=== PATIENT | male | born 1965 | race American Indian/Alaskan Native ===

== ENCOUNTER 2018-03-29 01:31 | Emergency (ER) | payer BC, OTHER ==
[2018-03-29 01:51] LABS: Absolute Lymphocytes (CBC) 1.7 K/uL (0.7-4.9); Absolute Monocytes 0.9 K/uL (0.1-1.3); Absolute Neutrophil 10.4 K/uL (1.8-8.0); Basophils % 0.2 % (0-1.3); Eosinophils % 0.5 % (0-4.4); Hematocrit 43.6 % (39.6-49.0); Lymphocytes % 12.8 % (15.3-44.8); MCH 30.9 pg (27.0-35.0); MCV 90.2 fL (80-100); MPV 8.2 fL (7.6-11.3); Monocytes % 6.9 % (3.3-12.3); RBC Red Blood Cell Count 4.84 M/uL (4.33-5.43)
[2018-03-29] MEDS ORDERED: NA CHLORIDE 0.9% 1,000 ML ONE (01:55)
[2018-03-29] MEDS ORDERED: ONDANSETRON 4 MG/2 ML VIAL ONE (01:55)
[2018-03-29] MEDS ORDERED: FENTANYL CITR 100 MCG/2 ML ONE (01:55)
[2018-03-29] MEDS ORDERED: KETOROLAC 30 MG/ML INJ ONE (01:55)
[2018-03-29 02:08] LABS: Albumin 4.4 g/dL (3.4-5.0); Bilirubin Total 0.5 mg/dL (0.2-1.0); Protein, Total 8.7 g/dL (6.4-8.2)
--- NOTE | 2018-03-29 02:32 | EDPHYS ---
Physician Documentation [facility] Name: Toby Wallace Age: 52 yrs Sex: Male : 1965 Arrival Date: 03/29/2018 Time: 01:32 Bed 5 Private MD: CHRIS Physician Lee Fontenot HPI: 03/29 01:41 This 52 yrs old Other Male presents to ER via Ambulatory with complaints of Back Pain. anish 01:41 The patient presents with pain that is acute, with no known mechanism of injury. The anish symptoms are located in the low back, right mid back and right low back. Onset: The symptoms/episode began/occurred just prior to arrival. The pain does not radiate. Associated signs and symptoms: The patient has no apparent associated signs or symptoms. Modifying factors: The patient symptoms are alleviated by nothing, the patient symptoms are aggravated by nothing. Severity of symptoms: At their worst the symptoms were. The patient has not experienced similar symptoms in the past. Historical: - Allergies: 01:42 No Known Allergies; fc - Home Meds: 01:42 Crestor 10 mg oral tab 1 tab once daily [Active]; Tribenzor 40-10-25 mg oral tab 1 tab fc once daily [Active]; Janumet 50-1,000 mg oral tab 1 tab 2 times per day [Active]; aspirin 81 mg Oral TbEC 1 tab once daily [Active]; Bystolic 10 mg oral tab 1 tab once daily [Active]; - PMHx: 01:42 Hypertension; Hyperlipidemia; fc - Immunization history:: Last tetanus immunization: up to date Flu vaccine is not up to date. - Social history:: Smoking status: Patient/guardian denies using tobacco, Patient uses alcohol, occasionally. - Ebola Screening: : Patient negative for fever greater than or equal to 101.5 degrees Fahrenheit, and additional compatible Ebola Virus Disease symptoms Patient denies exposure to infectious person Patient denies travel to an Ebola-affected area in the 21 days before illness onset. - Family history:: not pertinent. ROS: 01:41 Constitutional: Negative for fever, chills, and weight loss, Eyes: Negative for injury, anish pain, redness, and discharge, ENT: Negative for injury, pain, and discharge, Neck: Negative for injury, pain, and swelling, Cardiovascular: Negative for chest pain, palpitations, and edema, Respiratory: Negative for shortness of breath, cough, wheezing, and pleuritic chest pain, Abdomen/GI: Negative for abdominal pain, nausea, vomiting, diarrhea, and constipation, : Negative for injury, bleeding, discharge, and swelling, MS/Extremity: Negative for injury and deformity, Skin: Negative for injury, rash, and discoloration, Neuro: Negative for headache, weakness, numbness, tingling, and seizure, Psych: Negative for depression, anxiety, suicide ideation, homicidal ideation, and hallucinations, Allergy/Immunology: Negative for hives, rash, and allergies, Endocrine: Negative for neck swelling, polydipsia, polyuria, polyphagia, and marked weight changes, Hematologic/Lymphatic: Negative for swollen nodes, abnormal bleeding, and unusual bruising. 01:41 Back: Positive for pain at rest, flank pain, on the right. Exam: 01:41 Constitutional: This is a well developed, well nourished patient who is awake, alert, anish and in no acute distress. Head/Face: Normocephalic, atraumatic. Eyes: Pupils equal round and reactive to light, extra-ocular motions intact. Lids and lashes normal. Conjunctiva and sclera are non-icteric and not injected. Cornea within normal limits. Periorbital areas with no swelling, redness, or edema. ENT: Nares patent. No nasal discharge, no septal abnormalities noted. Tympanic membranes are normal and external auditory canals are clear. Oropharynx with no redness, swelling, or masses, exudates, or evidence of obstruction, uvula midline. Mucous membranes moist. Neck: Trachea midline, no thyromegaly or masses palpated, and no cervical lymphadenopathy. Supple, full range of motion without nuchal rigidity, or vertebral point tenderness. No Meningismus. Chest/axilla: Normal chest wall appearance and motion. Nontender with no deformity. No lesions are appreciated. Cardiovascular: Regular rate and rhythm with a normal S1 and S2. No gallops, murmurs, or rubs. Normal PMI, no JVD. No pulse deficits. Respiratory: Lungs have equal breath sounds bilaterally, clear to auscultation and percussion. No rales, rhonchi or wheezes noted. No increased work of breathing, no retractions or nasal flaring. Abdomen/GI: Soft, non-tender, with normal bowel sounds. No distension or tympany. No guarding or rebound. No evidence of tenderness throughout. Male : Normal genitalia with no discharge or lesions. Skin: Warm, dry with normal turgor. Normal color with no rashes, no lesions, and no evidence of cellulitis. MS/ Extremity: Pulses equal, no cyanosis. Neurovascular intact. Full, normal range of motion. Neuro: Awake and alert, GCS 15, oriented to person, place, time, and situation. Cranial nerves II-XII grossly intact. Motor strength 5/5 in all extremities. Sensory grossly intact. Cerebellar exam normal. Normal gait. Psych: Awake, alert, with orientation to person, place and time. Behavior, mood, and affect are within normal limits. 01:41 Back: pain, that is moderate, ROM is normal, normal spinal alignment noted, CVA tenderness, is absent. Vital Signs: 01:37 BP 164 / 101; Pulse 77; Resp 18; Temp 97.8(O); Pulse Ox 100% on R/A; Weight 70.31 kg fc (R); Height 5 ft. 8 in. (172.72 cm) (M); Pain 8/10; 02:00 BP 156 / 94; Pulse 75; Resp 18; Temp 97.8(O); Pulse Ox 99% on R/A; rr5 02:51 BP 142 / 86; Pulse 80; Resp 16; Pulse Ox 99% on R/A; rr5 01:37 Body Mass Index 23.57 (70.31 kg, 172.72 cm) MDM: 01:35 Patient medically screened. [facility] 01:43 Data reviewed: vital signs, nurses notes, lab test result(s), radiologic studies, CT anish scan. 03/29 01:40 Order name: CBC with Diff; Complete Time: 02:07 [facility] 03/29 01:40 Order name: Comprehensive Metabolic Panel; Complete Time: 02:27 [facility] 03/29 01:40 Order name: Lipase; Complete Time: 02:27 [facility] 03/29 01:41 Order name: Urine Culture [facility] 03/29 02:39 Order name: Urine Dipstick--Ancillary (enter results) mw2 03/29 02:47 Order name: HgA1c [facility] 03/29 01:40 Order name: CT Stone Protocol [facility] Administered Medications: 01:50 Drug: Zofran 4 mg Route: IVP; Site: right antecubital; rr5 02:49 Follow up: Response: No adverse reaction rr5 01:53 Drug: TORadol 30 mg Route: IVP; Site: right antecubital; rr5 02:49 Follow up: Response: No adverse reaction rr5 01:57 Drug: fentaNYL (PF) 25 mcg {Note: BP156/94.} Route: IVP; Site: right antecubital; rr5 02:49 Follow up: Response: No adverse reaction rr5 02:03 Drug: NS 0.9% 1000 ml Route: IV; Rate: 1 bolus; Site: right antecubital; rr5 02:50 Follow up: Response: No adverse reaction; IV Status: Order to discontinue infusion; IV rr5 Intake: 300ml ; discharged 02:38 CANCELLED (Duplicate Order): Rocephin - (cefTRIAXone) 1 grams IVPB once over 30 mins; anish (mix in 50 mL NS) 02:47 Drug: Flomax 0.4 mg Route: PO; rr5 02:47 Follow up: Response: Medication administered at discharge. rr5 02:48 Not Given (relieved from pain): fentaNYL (PF) 25 mcg IVP once rr5 Disposition: 03/29/18 02:31 Discharged to Home. Impression: Hydronephrosis with renal and ureteral calculous obstruction - 2-3 mm upj stone, Type 2 diabetes mellitus. - Condition is Stable. - Discharge Instructions: Kidney Stones, Kidney Stones, Uath-ne-Fdda, Hydronephrosis, Dietary Guidelines to Help Prevent Kidney Stones. - Prescriptions for Cipro 250 mg Oral Tablet - take 1 tablet by ORAL route every 12 hours; 14 tablet. Tylenol- Codeine #3 300-30 mg Oral Tablet - take 2 tablet by ORAL route every 6 hours As needed; 30 tablet. Zofran 4 mg Oral Tablet - take 1 tablet by ORAL route every 12 hours As needed; 20 tablet. Flomax 0.4 mg Oral Capsule, Sust. Release 24 hr - take 1 capsule by ORAL route once daily 1/2 hour following the same meal each day; 30 capsule. - Medication Reconciliation Form, Thank You Letter, Antibiotic Education, Prescription Opioid Use form. - Follow up: Private Physician; When: 2 - 3 days; Reason: Recheck today's complaints, Continuance of care, Re-evaluation by your physician. Follow up: Parag Ramirez MD; When: 2 - 3 days; Reason: Recheck today's complaints, Re-evaluation by your physician. - Problem is new. - Symptoms have improved. Signatures: Dispatcher [employer] Lee Zeng MD MD cha Chretien, Felicia, RN RN Dell Stephenson RN RN rr5 Corrections: (The following items were deleted from the chart) 02:38 02:28 Rocephin - (cefTRIAXone) 1 grams IVPB once over 30 mins; (mix in 50 mL NS) anish ordered. anish 02:52 02:31 03/29/2018 02:31 Discharged to Home. Impression: Hydronephrosis with renal and rr5 ureteral calculous obstruction - 2-3 mm upj stone; Type 2 diabetes mellitus. Condition is Stable. Forms are Medication Reconciliation Form, Thank You Letter, Antibiotic Education, Prescription Opioid Use. Follow up: Private Physician; When: 2 - 3 days; Reason: Recheck today's complaints, Continuance of care, Re-evaluation by your physician. Follow up: Parag Ramirez; When: 2 - 3 days; Reason: Recheck today's complaints, Re-evaluation by your physician. Problem is new. Symptoms have improved. anish
--- NOTE | 2018-03-29 02:32 | ER ---
Nurse's Notes [facility] Name: Toby Wallace Age: 52 yrs Sex: Male : 1965 Arrival Date: 03/29/2018 Time: 01:32 Bed 5 Private MD: Diagnosis: Hydronephrosis with renal and ureteral calculous kkxrsjynmek-3-9 mm upj stone;Type 2 diabetes mellitus Presentation: 03/29 01:37 Presenting complaint: Patient states: that he is having right lower back pain that fc started at 2200 tonight. Denies any urinary problems or nausea/vomiting. Thinks he may have a kidney stone. Transition of care: patient was not received from another setting of care. Onset of symptoms was March 28, 2018 at 22:00. Risk Assessment: Do you want to hurt yourself or someone else? Patient reports no desire to harm self or others. Initial Sepsis Screen: Does the patient meet any 2 criteria? No. Patient's initial sepsis screen is negative. Does the patient have a suspected source of infection? No. Patient's initial sepsis screen is negative. Care prior to arrival: Medication(s) given: Hydrocodone at 2300. 01:37 Method Of Arrival: Ambulatory fc 01:37 Acuity: PADILLA 3 fc Historical: - Allergies: 01:42 No Known Allergies; fc - Home Meds: 01:42 Crestor 10 mg oral tab 1 tab once daily [Active]; Tribenzor 40-10-25 mg oral tab 1 tab fc once daily [Active]; Janumet 50-1,000 mg oral tab 1 tab 2 times per day [Active]; aspirin 81 mg Oral TbEC 1 tab once daily [Active]; Bystolic 10 mg oral tab 1 tab once daily [Active]; - PMHx: 01:42 Hypertension; Hyperlipidemia; fc - Immunization history:: Last tetanus immunization: up to date Flu vaccine is not up to date. - Social history:: Smoking status: Patient/guardian denies using tobacco, Patient uses alcohol, occasionally. - Ebola Screening: : Patient negative for fever greater than or equal to 101.5 degrees Fahrenheit, and additional compatible Ebola Virus Disease symptoms Patient denies exposure to infectious person Patient denies travel to an Ebola-affected area in the 21 days before illness onset. - Family history:: not pertinent. Screenin:40 Abuse screen: Denies threats or abuse. Nutritional screening: No deficits noted. Tuberculosis screening: No symptoms or risk factors identified. Fall Risk None identified. Assessment: 02:00 General: Appears uncomfortable, ill, Behavior is cooperative. Pain: Complains of pain rr5 in right lower and mid back Pain does not radiate. Pain at worst was 10 out of 10 on a pain scale. Quality of pain is described as aching, Pain began 1 hour ago. Is intermittent. Neuro: Level of Consciousness is awake, alert, obeys commands, Oriented to person, place, time, situation. Cardiovascular: Capillary refill < 3 seconds Patient's skin is warm and dry. Respiratory: Airway is patent. GI: Abdomen is flat. : No signs and/or symptoms were reported regarding the genitourinary system. Denies burning with urination, inability to void. EENT: No signs and/or symptoms were reported regarding the EENT system. Derm: No signs and/or symptoms reported regarding the dermatologic system. Musculoskeletal: No signs and/or symptoms reported regarding the musculoskeletal system. Capillary refill < 3 seconds. 02:19 Reassessment: Patient states feeling better. Patient states symptoms have improved. rr5 Reassessment: feeling relieved from severe pain as verbalized. Pain: Pain currently is 5 out of 10 on a pain scale. Current management is with given fentanyl and toradol IV is partially effective Goal of pain control is to be pain free, sleep comfortably. Vital Signs: 01:37 BP 164 / 101; Pulse 77; Resp 18; Temp 97.8(O); Pulse Ox 100% on R/A; Weight 70.31 kg fc (R); Height 5 ft. 8 in. (172.72 cm) (M); Pain 8/10; 02:00 BP 156 / 94; Pulse 75; Resp 18; Temp 97.8(O); Pulse Ox 99% on R/A; rr5 02:51 BP 142 / 86; Pulse 80; Resp 16; Pulse Ox 99% on R/A; rr5 01:37 Body Mass Index 23.57 (70.31 kg, 172.72 cm) ED Course: 01:32 Patient arrived in ED. es 01:35 Lee Fontenot MD is Attending Physician. anish 01:37 Arm band placed on Patient placed in an exam room, on a stretcher. fc 01:38 Triage completed. fc 01:40 Patient has correct armband on for positive identification. Bed in low position. Call light in reach. Pulse ox on. NIBP on. 01:43 Dell Stephenson RN is Primary Nurse. rr5 01:50 Inserted saline lock: 20 gauge in right antecubital area, using aseptic technique. rr5 Blood collected. 02:[address] via stretcher. kw1 02:06 CT completed. Patient tolerated procedure well. Patient moved back from [place]. kw1 02:12 CT Stone Protocol In Process Unspecified. EDMS 02:29 Parag Ramirez MD is Referral Physician. anish 02:51 No provider procedures requiring assistance completed. IV discontinued, bleeding rr5 controlled, Pressure dressing applied. Administered Medications: 01:50 Drug: Zofran 4 mg Route: IVP; Site: right antecubital; rr5 02:49 Follow up: Response: No adverse reaction rr5 01:53 Drug: TORadol 30 mg Route: IVP; Site: right antecubital; rr5 02:49 Follow up: Response: No adverse reaction rr5 01:57 Drug: fentaNYL (PF) 25 mcg {Note: BP156/94.} Route: IVP; Site: right antecubital; rr5 02:49 Follow up: Response: No adverse reaction rr5 02:03 Drug: NS 0.9% 1000 ml Route: IV; Rate: 1 bolus; Site: right antecubital; rr5 02:50 Follow up: Response: No adverse reaction; IV Status: Order to discontinue infusion; IV rr5 Intake: 300ml ; discharged 02:38 CANCELLED (Duplicate Order): Rocephin - (cefTRIAXone) 1 grams IVPB once over 30 mins; anish (mix in 50 mL NS) 02:47 Drug: Flomax 0.4 mg Route: PO; rr5 02:47 Follow up: Response: Medication administered at discharge. rr5 02:48 Not Given (relieved from pain): fentaNYL (PF) 25 mcg IVP once rr5 Intake: 02:50 IV: 300ml; Total: 300ml. rr5 Outcome: 02:31 Discharge ordered by . anish 02:51 Discharged to home ambulatory. rr5 02:51 Condition: stable 02:51 Discharge instructions given to patient, Instructed on discharge instructions, follow up and referral plans. medication usage, Demonstrated understanding of instructions, follow-up care, medications, Prescriptions given X 4. 02:52 Patient left the ED. rr5 Signatures: Dispatcher [employer] Lee Zeng MD MD cha Salyer, Edna es Chretien, Felicia, RN RN Torrie Floyd1 Dell Stephenson RN RN rr5
[2018-03-29] MEDS ORDERED: TAMSULOSIN 0.4 MG SR CAP ONE (02:53)
[2018-03-29 03:06] VITALS: TEMP 97.8
[2018-03-29 03:07] VITALS: O2SAT 99
[2018-03-29 03:08] VITALS: BP 142/86
[2018-03-29 03:21] LABS: Urine Blood 2+ (NEG); Urine Glucose 2+ (NEG); Urine Protein NEGATIVE (NEG); Urine pH 8.5 (5.0-7.0)
--- NOTE | 2018-03-29 08:05 | RAD REPORT ---
EXAM DESCRIPTION: CT - Stone Protocol - 03/29/2018 5:38 am CLINICAL HISTORY: Abdominal pain. Lower abdominal pain. Urinary frequency COMPARISON: None. TECHNIQUE: Computed axial tomography of the abdomen pelvis was obtained without oral or IV contrast. Lack of IV and oral contrast limits evaluation of solid organs, bowel, and vessels. Coronal reformat eli images were obtained and reviewed. All CT scans are performed using dose optimization technique as appropriate and may include automated exposure control or mA/KV adjustment according to patient size. FINDINGS: A right renal calculus is not seen. A 1 millimeter calculus within the left kidney is susp ected. Minimal left hydronephrosis is seen without obstructing calculus. Mild right hydronephrosis is present with stranding in the adjacent fat. 4.5 millimeter calculus is present within the proximal r ight ureter near the UPJ Hounsfield unit 1545. The liver, spleen, pancreas and adrenals appear grossly normal There is no evidence of diverticulitis. The appendix appears normal Small umbilical hernia is present IMPRESSION: A 4.5 millimeter calculus proximal right ureter near the UPJ resulting in mild right hyd ronephrosis
== END 2018-03-29 02:52 | disposition home or self-care (01) ==
LOC: ER 01:31
DX: N13.2 Hydronephrosis with renal and ureteral calculous obstruction (principal); E11.9 Type 2 diabetes mellitus without complications; I10 Essential (primary) hypertension; E78.5 Hyperlipidemia, unspecified; Z79.82 Long term (current) use of aspirin
CPT/HCPCS: 36415; 74176; 76377; 80053; 81003; 83036; 83690; 85025; 87086; 87088; 96361; 96374; 96375; 99284; J2405; J3010; J7030

== ENCOUNTER 2018-03-29 22:59 | Observation (INO) | payer BC, OTHER ==
[2018-03-29] MEDS ORDERED: FENTANYL CITR 100 MCG/2 ML ONE (23:23)
[2018-03-29] MEDS ORDERED: CEFTRIAXONE 1000 MG/VIAL ONE (23:24)
[2018-03-29] MEDS ORDERED: NA CHLORIDE 0.9% 50 ML IV ONE (23:24)
[2018-03-29] MEDS ORDERED: NA CHLORIDE 0.9% 1,000 ML ONE (23:24)
[2018-03-29] MEDS ORDERED: ONDANSETRON 4 MG/2 ML VIAL ONE (23:24)
[2018-03-29] MEDS ORDERED: KETOROLAC 30 MG/ML INJ ONE (23:24)
[2018-03-29 23:40] LABS: Absolute Lymphocytes (CBC) 1.8 K/uL (0.7-4.9); Absolute Monocytes 0.9 K/uL (0.1-1.3); Absolute Neutrophil 5.6 K/uL (1.8-8.0); Basophils % 0.2 % (0-1.3); Eosinophils % 1.1 % (0-4.4); Hematocrit 40.4 % (39.6-49.0); Lymphocytes % 21.5 % (15.3-44.8); MCH 31.2 pg (27.0-35.0); MCV 89.4 fL (80-100); MPV 8.3 fL (7.6-11.3); Monocytes % 10.8 % (3.3-12.3); RBC Red Blood Cell Count 4.52 M/uL (4.33-5.43)
[2018-03-29 23:40] LABS: Urine Blood 1+ (NEG); Urine Glucose TRACE (NEG); Urine Protein NEGATIVE (NEG)
[2018-03-29 23:54] LABS: Albumin 4.2 g/dL (3.4-5.0); Bilirubin Total 0.7 mg/dL (0.2-1.0); Potassium 3.6 mmol/L (3.5-5.1); Protein, Total 8.3 g/dL (6.4-8.2)
--- NOTE | 2018-03-30 00:44 | EDPHYS ---
Physician Documentation [facility] Name: Toby Wallace Age: 52 yrs Sex: Male : 1965 Arrival Date: 03/29/2018 Time: 23:00 Bed 15 Private MD: Lee Summers HPI: 03/29 23:12 This 52 yrs old Other Male presents to ER via Unassigned with complaints of Possible anish Kidney Stone. 23:12 The patient presents with abdominal pain. Onset: The symptoms/episode began/occurred anish yesterday. The patient complains of pain in the right mid back and right low back. The pain does not radiate. Onset: The symptoms/episode began/occurred 1 day(s) ago. Associated signs and symptoms: The patient has no apparent associated signs or symptoms. The symptoms do not radiate. Associated signs and symptoms: none. Historical: - Allergies: 23:05 No Known Allergies; cc3 - Home Meds: 23:05 aspirin 81 mg Oral TbEC 1 tab once daily [Active]; Bystolic 10 mg Oral tab 1 tab once cc3 daily [Active]; Crestor 10 mg Oral tab 1 tab once daily [Active]; Janumet 50-1,000 mg Oral tab 1 tab 2 times per day [Active]; Tribenzor 40-10-25 mg Oral tab 1 tab once daily [Active]; - PMHx: 23:05 Hyperlipidemia; Hypertension; Diabetes - NIDDM; cc3 - PSHx: 23:05 None; cc3 - Immunization history:: Adult Immunizations not up to date. - Social history:: Smoking status: Patient/guardian denies using tobacco, never smoked. - Family history:: not pertinent. - Ebola Screening: : No symptoms or risks identified at this time. ROS: 23:12 Constitutional: Negative for fever, chills, and weight loss, Eyes: Negative for injury, anish pain, redness, and discharge, ENT: Negative for injury, pain, and discharge, Neck: Negative for injury, pain, and swelling, Cardiovascular: Negative for chest pain, palpitations, and edema, Respiratory: Negative for shortness of breath, cough, wheezing, and pleuritic chest pain, Abdomen/GI: Negative for abdominal pain, nausea, vomiting, diarrhea, and constipation, : Negative for injury, bleeding, discharge, and swelling, MS/Extremity: Negative for injury and deformity, Skin: Negative for injury, rash, and discoloration, Neuro: Negative for headache, weakness, numbness, tingling, and seizure, Psych: Negative for depression, anxiety, suicide ideation, homicidal ideation, and hallucinations, Allergy/Immunology: Negative for hives, rash, and allergies, Endocrine: Negative for neck swelling, polydipsia, polyuria, polyphagia, and marked weight changes, Hematologic/Lymphatic: Negative for swollen nodes, abnormal bleeding, and unusual bruising. 23:12 Back: Positive for pain at rest, flank pain, on the right. Exam: 23:12 Constitutional: This is a well developed, well nourished patient who is awake, alert, anish and in no acute distress. Head/Face: Normocephalic, atraumatic. Eyes: Pupils equal round and reactive to light, extra-ocular motions intact. Lids and lashes normal. Conjunctiva and sclera are non-icteric and not injected. Cornea within normal limits. Periorbital areas with no swelling, redness, or edema. ENT: Nares patent. No nasal discharge, no septal abnormalities noted. Tympanic membranes are normal and external auditory canals are clear. Oropharynx with no redness, swelling, or masses, exudates, or evidence of obstruction, uvula midline. Mucous membranes moist. Neck: Trachea midline, no thyromegaly or masses palpated, and no cervical lymphadenopathy. Supple, full range of motion without nuchal rigidity, or vertebral point tenderness. No Meningismus. Chest/axilla: Normal chest wall appearance and motion. Nontender with no deformity. No lesions are appreciated. Cardiovascular: Regular rate and rhythm with a normal S1 and S2. No gallops, murmurs, or rubs. Normal PMI, no JVD. No pulse deficits. Respiratory: Lungs have equal breath sounds bilaterally, clear to auscultation and percussion. No rales, rhonchi or wheezes noted. No increased work of breathing, no retractions or nasal flaring. Abdomen/GI: Soft, non-tender, with normal bowel sounds. No distension or tympany. No guarding or rebound. No evidence of tenderness throughout. Male : Normal genitalia with no discharge or lesions. Skin: Warm, dry with normal turgor. Normal color with no rashes, no lesions, and no evidence of cellulitis. MS/ Extremity: Pulses equal, no cyanosis. Neurovascular intact. Full, normal range of motion. Neuro: Awake and alert, GCS 15, oriented to person, place, time, and situation. Cranial nerves II-XII grossly intact. Motor strength 5/5 in all extremities. Sensory grossly intact. Cerebellar exam normal. Normal gait. Psych: Awake, alert, with orientation to person, place and time. Behavior, mood, and affect are within normal limits. 23:12 Back: pain, that is mild, that is moderate, of the right mid back, ROM is normal, normal spinal alignment noted, CVA tenderness, that is mild, is noted on the right, vertebral tenderness, is not appreciated, muscle spasm, is not present. Vital Signs: 23:05 BP 163 / 97; Pulse 92; Resp 20 S; Temp 99(O); Pulse Ox 100% on R/A; Weight 70.31 kg; cc3 Height 5 ft. 8 in. (172.72 cm); Pain 10/10; 03/30 00:35 BP 159 / 96; Pulse 94; Resp 18 S; Pulse Ox 96% on R/A; Pain 2/10; cc3 01:15 BP 150 / 90; Pulse 95; Resp 20 S; Pulse Ox 97% on R/A; cc3 01:42 BP 147 / 86; Pulse 91; Resp 19 S; Pulse Ox 97% on R/A; cc3 11 23:05 Body Mass Index 23.57 (70.31 kg, 172.72 cm) cc3 MDM: 03/29 23:05 Patient medically screened. [facility] 23:14 Data reviewed: vital signs, nurses notes, lab test result(s), radiologic studies, plain anish films. 03/29 23:08 Order name: CBC with Diff [facility] 03/29 23:08 Order name: Comprehensive Metabolic Panel; Complete Time: 00:35 [facility] 03/29 23:08 Order name: Abdomen 1 View (KUB) XRAY [facility] 03/29 23:13 Order name: Urine Dipstick--Ancillary (enter results); Complete Time: 00:35 ms 03/30 00:48 Order name: CONS Physician Consult EDMS Administered Medications: 23:20 Drug: NS 0.9% 1000 ml Route: IV; Rate: 1 bolus; Site: right antecubital; cc3 03/30 00:47 Follow up: Response: No adverse reaction; IV Status: Completed infusion; IV Intake: cc3 1000ml 03/29 23:25 Drug: TORadol 30 mg Route: IVP; Site: right antecubital; cc3 03/30 00:10 Follow up: Response: No adverse reaction; Pain is decreased cc3 03/29 23:28 Drug: Zofran 4 mg Route: IVP; Site: right antecubital; cc3 03/30 00:10 Follow up: Response: No adverse reaction; Nausea is decreased cc3 03/29 23:30 Drug: fentaNYL (PF) 25 mcg Route: IVP; Site: right antecubital; cc3 03/30 00:10 Follow up: Response: No adverse reaction; Pain is decreased cc3 03/29 23:40 Drug: Rocephin - (cefTRIAXone) 1 grams Route: IVPB; Infused Over: 30 mins; Site: right cc3 antecubital; 03/30 00:10 Follow up: Response: No adverse reaction; IV Status: Completed infusion; IV Intake: [id number] 00:50 Drug: fentaNYL (PF) 25 mcg Route: IVP; Site: right antecubital; cc3 01:20 Follow up: Response: No adverse reaction; Pain is decreased cc3 Disposition: 03/30/18 00:43 Hospitalization ordered by Christin Adair for Observation. Preliminary diagnosis are Hydronephrosis with renal and ureteral calculous obstruction - intractable pain, Unspecified kidney failure, Type 2 diabetes mellitus. - Bed requested for Telemetry/MedSurg (observation). - Status is Observation. cc3 - Condition is Stable. - Problem is new. - Symptoms have improved. UTI on Admission? No Signatures: Dispatcher [employer] EDTorrie Israel RN RN kl Anderson, Corey, MD MD cha Cordel, Charlene cc3 Corrections: (The following items were deleted from the chart) 00:48 00:43 Hospitalization Ordered by Christin Adair MD for Observation. Preliminary anish diagnosis is Hydronephrosis with renal and ureteral calculous obstruction - intractable pain. Bed requested for Telemetry/MedSurg (observation). Status is Observation. Condition is Stable. Problem is new. Symptoms have improved. UTI on Admission? No. anish 01:09 00:48 03/30/2018 00:43 Hospitalization Ordered by Christin Adair MD for Observation. kl Preliminary diagnosis is Hydronephrosis with renal and ureteral calculous obstruction - intractable pain; Unspecified kidney failure; Type 2 diabetes mellitus. Bed requested for Telemetry/MedSurg (observation). Status is Observation. Condition is Stable. Problem is new. Symptoms have improved. UTI on Admission? No. anish 01:49 01:09 03/30/2018 00:43 Hospitalization Ordered by Christin Adair MD for Observation. cc3 Preliminary diagnosis is Hydronephrosis with renal and ureteral calculous obstruction - intractable pain; Unspecified kidney failure; Type 2 diabetes mellitus. Bed requested for Telemetry/MedSurg (observation). Status is Observation. Condition is Stable. Problem is new. Symptoms have improved. UTI on Admission? No. kl
--- NOTE | 2018-03-30 00:44 | ER ---
Nurse's Notes [facility] Name: Toby Wallace Age: 52 yrs Sex: Male : 1965 Arrival Date: 03/29/2018 Time: 23:00 Bed 15 Private MD: Diagnosis: Hydronephrosis with renal and ureteral calculous obstruction-intractable pain;Unspecified kidney failure;Type 2 diabetes mellitus Presentation: 03/29 23:05 Presenting complaint: Patient states: right flank pain. Transition of care: patient was cc3 not received from another setting of care. 23:05 Method Of Arrival: Ambulatory cc3 23:05 Acuity: PADILLA 3 cc3 23:05 Onset of symptoms was March 29, 2018. Risk Assessment: Do you want to hurt yourself cc3 or someone else? Patient reports no desire to harm self or others. Initial Sepsis Screen: Does the patient meet any 2 criteria? No. Patient's initial sepsis screen is negative. Does the patient have a suspected source of infection? No. Patient's initial sepsis screen is negative. Care prior to arrival: None. Triage Assessment: 23:05 General: Appears in no apparent distress. comfortable, Behavior is calm, cooperative, cc3 appropriate for age. Pain: Complains of pain in right flank pain Pain currently is 10 out of 10 on a pain scale. Quality of pain is described as aching. EENT: No signs and/or symptoms were reported regarding the EENT system. Neuro: Level of Consciousness is awake, alert, obeys commands, Oriented to person, place, time, situation, Appropriate for age. Cardiovascular: Denies chest pain. Respiratory: Airway is patent Respiratory effort is even, unlabored, Respiratory pattern is regular, symmetrical. GI: Abdomen is flat, non-distended. : No signs and/or symptoms were reported regarding the genitourinary system. Derm: No signs and/or symptoms reported regarding the dermatologic system. Musculoskeletal: Circulation, motion, and sensation intact. Range of motion: intact in all extremities. Historical: - Allergies: 23:05 No Known Allergies; cc3 - Home Meds: 23:05 aspirin 81 mg Oral TbEC 1 tab once daily [Active]; Bystolic 10 mg Oral tab 1 tab once cc3 daily [Active]; Crestor 10 mg Oral tab 1 tab once daily [Active]; Janumet 50-1,000 mg Oral tab 1 tab 2 times per day [Active]; Tribenzor 40-10-25 mg Oral tab 1 tab once daily [Active]; - PMHx: 23:05 Hyperlipidemia; Hypertension; Diabetes - NIDDM; cc3 - PSHx: 23:05 None; cc3 - Immunization history:: Adult Immunizations not up to date. - Social history:: Smoking status: Patient/guardian denies using tobacco, never smoked. - Family history:: not pertinent. - Ebola Screening: : No symptoms or risks identified at this time. Screenin:05 Abuse screen: Denies threats or abuse. Denies injuries from another. Nutritional cc3 screening: No deficits noted. Tuberculosis screening: No symptoms or risk factors identified. Fall Risk Ambulatory Aid- None/Bed Rest/Nurse Assist (0 pts). Gait- Normal/Bed Rest/Wheelchair (0 pts) Mental Status- Oriented to own ability (0 pts). Assessment: 23:05 General: see triage assessment. cc3 23:05 GI: Bowel sounds present X 4 quads. Abd is soft and non tender X 4 quads. cc3 03/30 00:43 Reassessment: Patient appears in no apparent distress at this time. Patient and/or cc3 family updated on plan of care and expected duration. Pain level reassessed. Patient is alert, oriented x 3, equal unlabored respirations, skin warm/dry/pink. Patient for admission, awaiting admission orders. 01:40 Reassessment: Patient appears in no apparent distress at this time. Patient and/or cc3 family updated on plan of care and expected duration. Pain level reassessed. Patient is alert, oriented x 3, equal unlabored respirations, skin warm/dry/pink. Room available in 420, report handed over to KIMMY Meredith for continuity of care. 01:49 Reassessment: Patient left ER for admission vitally stable by wheelchair escorted by ED cc3 dolly Moralez. Vital Signs: 03/29 23:05 BP 163 / 97; Pulse 92; Resp 20 S; Temp 99(O); Pulse Ox 100% on R/A; Weight 70.31 kg; cc3 Height 5 ft. 8 in. (172.72 cm); Pain 10/10; 03/30 00:35 BP 159 / 96; Pulse 94; Resp 18 S; Pulse Ox 96% on R/A; Pain 2/10; cc3 01:15 BP 150 / 90; Pulse 95; Resp 20 S; Pulse Ox 97% on R/A; cc3 01:42 BP 147 / 86; Pulse 91; Resp 19 S; Pulse Ox 97% on R/A; cc3 03/29 23:05 Body Mass Index 23.57 (70.31 kg, 172.72 cm) cc3 ED Course: 03/29 23:00 Patient arrived in ED. am2 23:02 Monique Martins is Primary Nurse. cc3 23:05 Lee Fontenot MD is Attending Physician. anish 23:05 Arm band placed on right wrist. cc3 23:05 Patient has correct armband on for positive identification. Bed in low position. Call cc3 light in reach. Side rails up X 1. phototypesetting equipment monitor on. Pulse ox on. NIBP on. 23:20 Inserted saline lock: 22 gauge in right antecubital area, using aseptic technique. cc3 Blood collected. by KIMMY Torres. 23:59 Abdomen 1 View (KUB) XRAY In Process Unspecified. EDMS 03/30 00:43 Christin Adair MD is Hospitalizing Provider. anish 01:40 No provider procedures requiring assistance completed. Patient admitted, IV remains in cc3 place. 01:51 Triage completed. cc3 Administered Medications: 03/29 23:20 Drug: NS 0.9% 1000 ml Route: IV; Rate: 1 bolus; Site: right antecubital; cc3 03/30 00:47 Follow up: Response: No adverse reaction; IV Status: Completed infusion; IV Intake: cc3 1000ml 03/29 23:25 Drug: TORadol 30 mg Route: IVP; Site: right antecubital; cc3 03/30 00:10 Follow up: Response: No adverse reaction; Pain is decreased cc3 03/29 23:28 Drug: Zofran 4 mg Route: IVP; Site: right antecubital; cc3 03/30 00:10 Follow up: Response: No adverse reaction; Nausea is decreased cc3 03/29 23:30 Drug: fentaNYL (PF) 25 mcg Route: IVP; Site: right antecubital; cc3 03/30 00:10 Follow up: Response: No adverse reaction; Pain is decreased cc3 03/29 23:40 Drug: Rocephin - (cefTRIAXone) 1 grams Route: IVPB; Infused Over: 30 mins; Site: right cc3 antecubital; 03/30 00:10 Follow up: Response: No adverse reaction; IV Status: Completed infusion; IV Intake: [id number] 00:50 Drug: fentaNYL (PF) 25 mcg Route: IVP; Site: right antecubital; cc3 01:20 Follow up: Response: No adverse reaction; Pain is decreased cc3 Intake: 00:10 IV: 50ml; Total: 50ml. cc3 00:47 IV: 1000ml; Total: 1050ml. cc3 Outcome: 00:43 Decision to Hospitalize by Provider. anish 01:40 Admitted to Tele accompanied by tech, via wheelchair, room 420, with chart, Report cc3 called to KIMMY Meredith 01:40 Condition: stable 01:40 Instructed on the need for admit, Demonstrated understanding of instructions. 01:49 Patient left the ED. cc3 Signatures: Dispatcher [employer] EDLee Salinas MD MD cha Moreno, Amanda am2 Cordel, Charlene cc3 Corrections: (The following items were deleted from the chart) 00:44 03/29 23:05 BP 163 / 97; Pulse 92bpm; Resp 20bpm; Spontaneous; Pulse Ox 100% RA; Temp cc3 99F Oral; 70.31 kg; Height 5 ft. 8 in.; BMI: 23.5; cc3 03/30 01:55 00:20 Reassessment: Patient appears in no apparent distress at this time. Patient cc3 and/or family updated on plan of care and expected duration. Pain level reassessed. Patient is alert, oriented x 3, equal unlabored respirations, skin warm/dry/pink. cc3
[2018-03-30] MEDS ORDERED: GLUCAGON 1 MG/VIAL IM PRN (00:47)
[2018-03-30] MEDS ORDERED: D50W 25 GM/50 ML SYRINGE IV PRN (00:47)
[2018-03-30] MEDS ORDERED: MORPHINE 2 MG/ML SYR IV PRN (01:29)
[2018-03-30] MEDS ORDERED: ACETAMINOPHEN 500 MG TAB PO PRN (01:29)
[2018-03-30] MEDS ORDERED: ONDANSETRON 4 MG/2 ML VIAL IV PRN ×2 (01:29→02:31)
[2018-03-30] MEDS ORDERED: NA CHLORIDE 0.9% 1,000 ML IV SCH (02:00)
[2018-03-30 02:20] VITALS: BMI 23.8
[2018-03-30] MEDS: TAMSULOSIN 0.4 MG SR CAP PO ONE ×2 (02:30→02:49)
[2018-03-30] MEDS ORDERED: HYDROMORPHONE HCL 1 MG/ML INJ IV PRN (02:31)
[2018-03-30] MEDS: NEBIVOLOL HCL 5 MG TAB PO SCH ×3 (02:49→11:27)
[2018-03-30] MEDS: NA CHLORIDE 0.9% 1,000 ML IV SCH ×2 (02:49→09:40)
--- NOTE | 2018-03-30 04:08 | P.HP ---
Certification for Inpatient Patient admitted to: Observation With expected LOS: <2 Midnights Patient will require the following post-hospital care: None Practitioner: I am a practitioner with admitting privileges, knowledge of patient current condition, hospital course, and medical plan of care. 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 Patient was in the ER day before yesterday with similar complaints. He followed up with Urology, and they recommended lithotripsy. He was started on Flomax and discharged to follow-up in 1 week once the aspirin that he takes daily was out of his system. However, he started feeling worse. The pain became intractable and he came back to the emergency room. He had to be admitted for observation. We will Consult urology. I will make him NPO. Continue with pain control and antibiotics. Continue with Flomax. Resume his Bystolic as his blood pressure and heart rate are slightly elevated. Allergies No Known Allergies Allergy (Unverified 03/30/18 01:14) Home Medications: Aspirin Chewable [Aspirin Chewable*] 81 mg PO DAILY 03/30/18 Glipizide [Glipizide Xl] 2.5 mg PO DAILY 03/30/18 Nebivolol HCl [Bystolic*] 5 mg PO DAILY 03/30/18 Rosuvastatin [Crestor*] 20 mg PO DIRECTED 03/30/18 Sitagliptin Phos/Metformin HCl [Janumet Xr 50-1,000 mg Tablet] 1 tab PO BID 11/09 - Past Medical/Surgical History Has patient received pneumonia vaccine in the past: No Diabetic: Yes -: DM II -: HTN -: Dyslipidemia Past Surgical History: Patient denies surgical history - Family History Father Medical History: Diabetes Mother Medical History: Hypertension Notes: asthma - Social History Smoking Status: Never smoker Alcohol use: Yes CD- Drugs: No Caffeine use: Yes Place of Residence: Home Review of Systems 10-point ROS is otherwise unremarkable Physical Examination - Vital Signs Temperature: 98.2 F Blood Pressure: 140/81 Pulse: 84 Respirations: 18 Pulse Ox (%): 97 - Physical Exam General: Alert, In no apparent distress, Oriented x3 HEENT: Atraumatic, Normocephalic, EOMI Neck: JVD not distended Respiratory: Normal air movement Cardiovascular: Regular rate/rhythm, Normal S1 S2 Gastrointestinal: Tenderness (right flank) Musculoskeletal: No swelling Integumentary: Other (No abnormality visible) Neurological: Other (FREY, e learning coordinator are grossly intact) Lymphatics: No axilla or inguinal lymphadenopathy - Studies Laboratory Data (last 24 hrs) 03/29/18 23:20: Sodium 135 L, Potassium 3.6, BUN 22 H, Creatinine 1.70 H, Glucose 163 H, Total Bilirubin 0.7, AST 20, ALT 44, Alkaline Phosphatase 55 03/29/18 23:20: WBC 8.4 D, Hgb 14.1, Hct 40.4, Plt Count 211 Assessment & Plan - Problems (Diagnosis) (1) Nephrolithiasis Current Visit: Yes Status: Acute (2) Obstructive uropathy Current Visit: Yes Status: Acute (3) Bilateral hydronephrosis Current Visit: Yes Status: Acute (4) Diabetes type 2, controlled Current Visit: Yes Status: Acute (5) Hypertension Current Visit: Yes Status: Acute - Plan Plan: 1. Aggressive IV hydration 2. Pain control 3. IV antibiotics 4. Urology consultation for cystoscopy with possible stent placement 5. Strict blood pressure and blood sugar control 6. Continue Flomax 7. Strict input and output 8. Strain urine 9. GI and DVT prophylaxis Discharge Plan: Home Plan to discharge in: 24 Hours - Advance Directives Does patient have a Living Will: Yes Does patient have a Durable POA for Healthcare: Yes - Code Status/Comfort Care Code Status Assessed: Yes Code Status: Full Code Critical Care: No Time Spent Managing PTS Care (In Minutes): 35
[2018-03-30] MEDS ORDERED: CEFTRIAXONE 1000 MG/VIAL ONE (05:38)
[2018-03-30] MEDS ORDERED: NA CHLORIDE 0.9% 50 ML ONE (05:46)
[2018-03-30] MEDS ORDERED: CEFTRIAXONE 1 GM/NS 50 ML 1 GM/50 ML BAG IV SCH (06:00)
[2018-03-30 06:10] LABS: Absolute Lymphocytes (CBC) 1.6 K/uL (0.7-4.9); Absolute Monocytes 0.9 K/uL (0.1-1.3); Absolute Neutrophil 5.7 K/uL (1.8-8.0); Basophils % 0.3 % (0-1.3); Eosinophils % 0.8 % (0-4.4); Hematocrit 41.2 % (39.6-49.0); Lymphocytes % 19.3 % (15.3-44.8); MCH 31.2 pg (27.0-35.0); MPV 8.2 fL (7.6-11.3); Monocytes % 11.2 % (3.3-12.3); RBC Red Blood Cell Count 4.58 M/uL (4.33-5.43)
[2018-03-30 06:13] LABS: Protime INR 0.97
[2018-03-30 06:28] LABS: COL/ADP 91 SECONDS (56-102); COL/EPI > 300 SECONDS (80-184)
[2018-03-30] MEDS ORDERED: FENTANYL CITR 100 MCG/2 ML IV PRN (06:34)
[2018-03-30 06:37] LABS: Magnesium 2.1 mg/dL (1.8-2.4); Potassium 4.1 mmol/L (3.5-5.1)
[2018-03-30] MEDS: INSULIN -REGULAR HUMAN 50 UNIT/0.5 ML ML SQ SCH ×2 (07:30→11:30)
[2018-03-30] MEDS ORDERED: INFLUENZA VACCINE (for 3y+) 0.5 ML DOSE IMVAC ONE (08:00)
[2018-03-30] MEDS: TAMSULOSIN 0.4 MG SR CAP PO SCH ×2 (08:15→11:28)
[2018-03-30] MEDS ORDERED: GENTAMICIN 100 MG/100 ML BAG 100 MG/100 ML BAG IV SCH (08:15)
[2018-03-30] MEDS ORDERED: GENTAMICIN 100 MG/100 ML BAG 100 MG/100 ML BAG IV ONE (08:28)
--- NOTE | 2018-03-30 08:44 | RAD REPORT ---
EXAM DESCRIPTION: RAD - Abdomen 1 View (KUB) - 03/29/2018 11:59 pm CLINICAL HISTORY: Abdominal pain, flank pain, kidney stone COMPARISON: KUB March 29, CT stone protocol March 29 FINDINGS: Previously detailed proximal right ureter stone is no longer present in that location. Ret rograde movement is not suspected. Calcification along the superior margin right twelfth rib is not r elated to the system. Obstructing calculus is not definitively identified. However, there is a foc al density in the lower right pelvis superimposed on the sacrum coccygeal junction on the right. This is suspected to be migration of the stone to the UVJ. This is the approximate location of the UVJ ba sed on review of the CT stone protocol study. No other calcifications seen along the course of the st ent. Phleboliths seen left pelvic floor. Bowel gas pattern is nonspecific. Moderate stool volume throughout most of the colon. No significant bony findings IMPRESSION: The proximal right ureter 5 mm stone detail on the March 29 imaging is believed to hav e migrated to the right UVJ.
[2018-03-30] MEDS ORDERED: NA CHLORIDE 0.9% 1,000 ML ONE (08:52)
[2018-03-30] MEDS ORDERED: MIDAZOLAM HCL 2 MG/2 ML INJ ONE (09:15)
[2018-03-30] MEDS ORDERED: LIDOCAINE 1% MPF 5 ML VIAL ONE (09:17)
[2018-03-30] MEDS ORDERED: FENTANYL CITR 100 MCG/2 ML ONE (09:17)
[2018-03-30] MEDS ORDERED: PROPOFOL 200 MG/20 ML VIAL IV ONE (09:17)
[2018-03-30] MEDS ORDERED: EPHEDRINE SULF 50 MG/10 ML SYR ONE (09:52)
[2018-03-30] MEDS ORDERED: KETOROLAC 30 MG/ML INJ ONE (09:53)
[2018-03-30] MEDS ORDERED: ONDANSETRON HCL 40 MG/20 ML VIAL ONE (09:56)
[2018-03-30] MEDS ORDERED: Mastisol Adhesive Liq ONE (10:06)
--- NOTE | 2018-03-30 10:24 | RAD REPORT ---
EXAM DESCRIPTION: RAD - Urethrocystogrphy Retrograde - 03/30/2018 10:12 am CLINICAL HISTORY: CYSTO Stent placement COMPARISON: Abdomen 1 View (KUB) dated 03/29/2018; Stone Protocol dated 03/29/2018; Abdomen 1 View (KU B) dated 03/29/2018 FINDINGS: Fluoroscopic imaging of the abdomen was performed as part of a stent placement procedure. Details of the procedure not available. Total fluoro time: 2 minutes 35 seconds.
[2018-03-30 11:28] VITALS: BP 126/77
--- NOTE | 2018-03-30 11:50 | P.DS ---
Admission Date: 03/30/18 Discharge Date: 03/30/18 Primary Care Provider: None; UrologyKenyetta Ramirez Disposition: ROUTINE DISCHARGE Discharge Condition: GOOD Reason for Admission: Nephrolithiasis/obstructive uropathy Consultations: Urology-Dr. Ramirez Procedures: CT scan: COMPARISON: None. TECHNIQUE: Computed axial tomography of the abdomen pelvis was obtained without oral or IV contrast. Lack of IV and oral contrast limits evaluation of solid organs, bowel, and vessels. Coronal reformatted images were obtained and reviewed. All CT scans are performed using dose optimization technique as appropriate and may include automated exposure control or mA/KV adjustment according to patient size. FINDINGS: A right renal calculus is not seen. A 1 millimeter calculus within the left kidney is suspected. Minimal left hydronephrosis is seen without obstructing calculus. Mild right hydronephrosis is present with stranding in the adjacent fat. 4.5 millimeter calculus is present within the proximal right ureter near the UPJ Hounsfield unit [id number]. The liver, spleen, pancreas and adrenals appear grossly normal There is no evidence of diverticulitis. The appendix appears normal Small umbilical hernia is present IMPRESSION: A 4.5 millimeter calculus proximal right ureter near the UPJ resulting in mild right hydronephrosis Urological intervention: Cystoscopy, Stent placement Medical Problem List: Left flank pain secondary to 4.5 mm calculus to the proximal right ureter near the UPJ with mild right hydronephrosis and renal insufficiency status post cystoscopy and stent placement. Diabetes mellitus type 2 [id number] Hypertension Hyperlipidemia Brief History of Present Illness: 52-year-old male presented to the emergency room for left flank pain. Patient was seen recently in the ER and found to have a 4.5 mm left ureteral stone with mild hydronephrosis. The patient was discharged. Patient seen by urology as an outpatient. Urology had planned for urological intervention next week. Pain persisted and got worse. Patient came to the emergency room again and was admitted for further evaluation and treatment. Patient had some renal insufficiency. Hospital Course: Patient presented with persistent left flank pain. Patient recently found to have a 4.5 cm calculus to the proximal right ureter near the UPJ. Patient seen by urology as an outpatient. Patient was to have urological procedure next week. Pain worsened. Patient came back to the ER for treatment. Patient admitted for further evaluation. Urology was consulted. Urology performed cystoscopy with stent placement. Pain now well controlled. At discharge patient will continue with Keflex 500 mg 1 pill twice daily for 7 days. Patient given a limited supply of Tylenol #3 by urology. Patient will follow up with urology in 1 week to further monitor and address. Recommendation to recheck lab-BMP in 1 week to monitor resolution. Patient has diabetes mellitus type 2, non-insulin dependent. At discharge patient may continue with glipizide 2.5 mg 1 pill daily and Janumet mg 1 pill twice daily. Recommendation is to maintain blood sugars less than 140 fasting and less than 2 after meals. Further adjustment can be done by his PCP. Patient plans to establish care with a PCP in the area to continue his care. Patient has hypertension. Blood pressure controlled. Patient will continue with Bystolic 5 mg 1 pill daily. Further adjustment in the future can be done by his PCP. Patient has hyperlipidemia. Patient will continue with Crestor 20 mg 1 pill daily. Further adjustment can be done by his PCP. Vital Signs/Physical Exam: Temp Pulse Resp BP Pulse Ox 98.2 F 80 16 126/77 97 03/30/18 10:40 03/30/18 11:27 03/30/18 10:40 03/30/18 11:27 03/30/18 08:00 General: Alert, In no apparent distress, Oriented x3, Cooperative HEENT: Atraumatic, Mucous membr. moist/pink Neck: Supple Respiratory: Clear to auscultation bilaterally, Normal air movement Cardiovascular: Normal pulses, Regular rate/rhythm Gastrointestinal: Normal bowel sounds, Soft and benign, Non-distended, No tenderness, No masses, No rebound, No guarding Musculoskeletal: No erythema, No tenderness, No warmth Integumentary: No tenderness/swelling, No erythema, No warmth, No cyanosis Neurological: Normal speech, Normal strength at 5/5 x4 extr, Normal tone, Normal affect Laboratory Data at Discharge: WBC 8.3 K/uL (4.3-10.9) 03/30/18 05:58 Hgb 14.3 g/dL (13.6-17.9) 03/30/18 05:58 Hct 41.2 % (39.6-49.0) 03/30/18 05:58 Plt Count 195 K/uL (152-406) 03/30/18 05:58 PT 11.4 SECONDS (9.5-12.5) 03/30/18 05:58 INR 0.97 03/30/18 05:58 APTT 27.8 SECONDS (24.3-36.9) 03/30/18 05:58 Sodium 139 mmol/L (136-145) 03/30/18 05:58 Potassium 4.1 mmol/L (3.5-5.1) 03/30/18 05:58 BUN 19 mg/dL (7-18) H 03/30/18 05:58 Creatinine 1.40 mg/dL (0.55-1.3) H 03/30/18 05:58 Glucose 159 mg/dL (74-106) H 03/30/18 05:58 Phosphorus 3.0 mg/dL (2.5-4.9) 03/30/18 05:58 Magnesium 2.1 mg/dL (1.8-2.4) 03/30/18 05:58 Total Bilirubin 0.7 mg/dL (0.2-1.0) 03/29/18 23:20 AST 20 U/L (15-37) 03/29/18 23:20 ALT 44 U/L (12-78) 03/29/18 23:20 Alkaline Phosphatase 55 U/L (45-117) 03/29/18 23:20 Home Medications: Aspirin Chewable [Aspirin Chewable*] 81 mg PO DAILY 03/30/18 Cephalexin [Keflex] 500 mg PO BID #15 cap 03/30/18 Codeine/APAP [Tylenol W/Codeine #3 tab] 1 tab PO Q8H PRN #15 tab 03/30/18 Glipizide [Glipizide Xl] 2.5 mg PO DAILY 03/30/18 Nebivolol HCl [Bystolic*] 5 mg PO DAILY 03/30/18 Olmesartan/Amlodipin/Hcthiazid [Tribenzor 40-10-12.5 mg Tablet] 1 tab PO DAILY 03/30/18 Rosuvastatin [Crestor*] 20 mg PO DIRECTED 03/30/18 Sitagliptin Phos/Metformin HCl [Janumet Xr 50-1,000 mg Tablet] 1 tab PO BID 11/09 New Medications: Cephalexin [Keflex] 500 mg PO BID #15 cap Codeine/APAP [Tylenol W/Codeine #3 tab] 1 tab PO Q8H PRN #15 tab PRN Reason: Pain Patient Discharge Instructions: 1. Patient will need to follow up with a PCP to establish care and follow up this hospitalization. 2. Patient presented with persistent left flank pain. Patient recently found to have a 4.5 cm calculus to the proximal right ureter near the UPJ. Mild hydronephrosis and renal insufficiency was noted. Urology was consulted. Urology performed cystoscopy with stent placement. Pain now well controlled. At discharge patient will continue with Keflex 500 mg 1 pill twice daily for 7 days. Patient given a limited supply of Tylenol #3 by urology. Patient will follow up with urology in 1 week to further monitor and address. Recommendation to recheck lab-BMP in 1 week to monitor resolution. 3. Patient has diabetes mellitus type 2, non-insulin dependent. At discharge patient may continue with glipizide 2.5 mg 1 pill daily and Janumet mg 1 pill twice daily. Recommendation is to maintain blood sugars less than 140 fasting and less than 2 after meals. Further adjustment can be done by his PCP. Patient plans to establish care with a PCP in the area to continue his care. 4. Patient has hypertension. Blood pressure controlled. Patient will continue with Bystolic 5 mg 1 pill daily. Further adjustment in the future can be done by his PCP. 5. Patient has hyperlipidemia. Patient will continue with Crestor 20 mg 1 pill daily. Further adjustment can be done by his PCP. Diet: ADA Activity: Ad codie Followup: Parag Ramirez MD [ACTIVE - CAN ADMIT] - Time spent managing pt's care (in minutes): 55
[2018-03-30 12:07] VITALS: TEMP 97.9
[2018-03-30 12:50] VITALS: O2SAT 99
--- NOTE | 2018-03-30 13:13 | CON ---
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 The patient is on aspirin, so he is not permitted to have a lithotripsy at this time. He is on Flomax and pain medication, magnesium and lemonade. However, the pain was so severe, he had to be admitted last night. Stone is still at the right UPJ. We will plan on placing a stent for him today. Allergies: NO KNOWN DRUG ALLERGIES. Home Medications: Aspirin, glipizide, Bystolic, Crestor, Janumet. Past Medical History/surgical History: Patient is diabetic type 2, hypertension , dyslipidemia. Family History: Diabetes. Mother had hypertension. Social History: Never smoked. Alcohol use, yes. No drug use. Some caffeine use. Patient resides at home. Review of Systems: A 10-point review of systems otherwise unremarkable. Physical Examination: General Appearance: Stable. No acute distress. Vital Signs: 98.2, pulse 84, respiratory rate 18, BP 140/81, saturations 97%. Pain level was 3/10 currently on pain medication. HEENT: Atraumatic, normocephalic. Chest: Clear. Heart: Regular rate and rhythm. Abdomen: Soft, nontender. Extremities: Normal range of motion. Laboratory Data: White count 8.3, H and H 14 and 41, platelet count 195. Coagulations; platelet function over epi greater than 300. Chemistry: Sodium 139, potassium 4.1, chloride 108, carbon dioxide 27, BUN 19, creatinine 1.4, GFR 53, glucose 159, calcium 8.8. Urine test shows pH 7.0, blood 1+, nitrite negative. KUB shows a stone right at the right UPJ; I believe it was a 4-mm stone. 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 The patient is on aspirin. He is not a candidate for lithotripsy at this point. Aspirin will need to be stopped 7 days prior. We will do a cystoscopy, right retrograde pyelogram, and DJ stent placement today. All the general information and alternatives were discussed. The patient wishes to proceed. ARETHA/JAMILA Voice ID: [id number] Report ID: [id number] ROVERTO
[2018-03-31] MEDS ORDERED: CEFTRIAXONE/SWI 1gm 1 GM/10 ML SYR IV SCH (06:00)
[2018-03-31] MEDS ORDERED: GLIPIZIDE S.A. 5 MG TAB PO SCH (08:00)
[2018-03-31] MEDS ORDERED: AMLODIPINE 10 MG TAB PO SCH (09:00)
[2018-03-31] MEDS ORDERED: OLMESARTAN PO SCH (09:00)
[2018-03-31] MEDS ORDERED: ROSUVASTATIN 10 MG TAB PO SCH (09:00)
[2018-03-31] MEDS ORDERED: VALSARTAN 80 MG TAB PO SCH (09:00)
[2018-03-31] MEDS ORDERED: hydroCHLOROthiazide 12.5 MG CAP PO SCH (09:00)
[2018-03-31] MEDS ORDERED: [UNRECOGNIZED DRUG - OTHER] PO SCH (09:00)
[2018-03-31] MEDS ORDERED: HCTHIAZID PO SCH (09:00)
[2018-03-31] MEDS ORDERED: AMLODIPIN PO SCH (09:00)
== END 2018-03-30 13:20 | disposition home or self-care (01) ==
LOC: ER 22:59 → ERHOLD 03-30 00:45 → 4TH 03-30 01:43
PROVIDERS: ADMIT Hospitalist; ATTEND Hospitalist
PROC: 0T768DZ Dilation of Right Ureter with Intraluminal Device, Via Natural or Artificial Opening Endoscopic (ICD-10-PCS; principal; 2018-03-30 09:30)
DX: N13.2 Hydronephrosis with renal and ureteral calculous obstruction (principal); N28.9 Disorder of kidney and ureter, unspecified; E11.9 Type 2 diabetes mellitus without complications; I10 Essential (primary) hypertension; E78.5 Hyperlipidemia, unspecified; Z79.82 Long term (current) use of aspirin; Z23 Encounter for immunization
CPT/HCPCS: 36415; 51610; 74018; 74450; 80048; 80053; 81003; 82962; 83735; 84100; 85025; 85576; 85610; 85730; 96361; 96365; 96375; 99285; G0008; G0378; J0696; J1170; J1580; J2250; J2270; J2405; J2704; J3010; J7030; Q2035; Q9967

== ENCOUNTER 2018-04-06 08:56 | Day surgery (SDC) | payer BC, OTHER ==
[2018-04-02 13:42] LABS: Absolute Monocytes 0.5 K/uL (0.1-1.3); Absolute Neutrophil 3.3 K/uL (1.8-8.0); Basophils % 0.5 % (0-1.3); Eosinophils % 3.4 % (0-4.4); Hematocrit 43.6 % (39.6-49.0); Lymphocytes % 19.9 % (15.3-44.8); MCH 31.1 pg (27.0-35.0); MCV 91.2 fL (80-100); MPV 8.4 fL (7.6-11.3); Monocytes % 9.6 % (3.3-12.3); RBC Red Blood Cell Count 4.78 M/uL (4.33-5.43)
[2018-04-02 13:45] LABS: Protime INR 0.97
[2018-04-02 13:51] LABS: Phosphorus 3.2 mg/dL (2.5-4.9); Potassium 3.7 mmol/L (3.5-5.1); Uric Acid 4.4 mg/dL (3.5-7.2)
[2018-04-06] MEDS ORDERED: NA CHLORIDE 0.9% 1,000 ML ONE (09:16)
[2018-04-06] MEDS ORDERED: GENTAMICIN 100 MG/100 ML BAG 100 MG/100 ML BAG IV ONE (09:18)
--- NOTE | 2018-04-06 09:30 | RAD REPORT ---
EXAM DESCRIPTION: RAD - Abdomen 1 View (KUB) - 04/06/2018 9:18 am CLINICAL HISTORY: ICD N 20.0 FINDINGS: The bowel gas pattern is unremarkable. Small calculus within the lower pole the right kidney is unchanged.
[2018-04-06] MEDS ORDERED: LIDOCAINE 2% MPF 5 ML VIAL ONE (10:24)
[2018-04-06] MEDS ORDERED: MIDAZOLAM HCL 2 MG/2 ML INJ ONE (10:24)
[2018-04-06] MEDS ORDERED: PROPOFOL 200 MG/20 ML VIAL IV ONE (10:24)
[2018-04-06] MEDS ORDERED: FENTANYL CITR 100 MCG/2 ML ONE ×2 (10:24→12:45)
[2018-04-06] MEDS ORDERED: GLYCOPYRROLATE 0.2 MG/ML SYR ONE (11:04)
[2018-04-06] MEDS ORDERED: KETOROLAC 30 MG/ML INJ ONE (11:14)
[2018-04-06] MEDS: MORPHINE 4 MG/ML SYR ONE ×2 (11:42→11:47)
[2018-04-06] MEDS: MEPERIDINE HCL 50 MG/ML AMP ONE ×3 (11:50→11:59)
[2018-04-06] MEDS ORDERED: MEPERIDINE HCL 50 MG/ML AMP ONE (12:10)
[2018-04-06 14:52] VITALS: BP 139/84; TEMP 98; O2SAT 98
== END 2018-04-06 13:25 | disposition home or self-care (01) ==
LOC: PRE 08:56 → OR 13:25
PROVIDERS: ATTEND Urology
PROC: 0TF3XZZ Fragmentation in Right Kidney Pelvis, External Approach (ICD-10-PCS; principal; 2018-04-06 10:00)
DX: N20.0 Calculus of kidney (principal); N41.0 Acute prostatitis; E11.9 Type 2 diabetes mellitus without complications; I10 Essential (primary) hypertension; E78.5 Hyperlipidemia, unspecified; Z82.49 Family history of ischemic heart disease and other diseases of the circulatory system
CPT/HCPCS: 36415; 50590; 74018; 80048; 82962; 84100; 84550; 85025; 85610; 85730; J1580; J2175; J2250; J2704; J3010; J7030